=== PATIENT | male | born 1960 | race Caucasian/White ===

== ENCOUNTER 2025-07-17 19:22 | Emergency (ER) | payer MEDICARE, MEDICAID, SELFPAY ==
--- NOTE | ~2025-07-17 | XR_ITS ---
Examination: XR chest 1V portable Clinical History: SOB, bilat feet swelling Comparison: None Technique: Portable AP Findings: Heart size normal. Lungs clear. No acute bony abnormality. IMPRESSION: 1. No acute cardiopulmonary findings given portable technique. Reviewed, dictated and finalized at location [employer]
[2025-07-17 19:30] VITALS: BP 146/84; PULSE 64; RESP 22; TEMP 36.4; O2SAT 91
--- NOTE | 2025-07-17 19:36 | PC.NURSE ---
pt placed on 2L via NC with oxygen saturation at 95%.
--- NOTE | 2025-07-17 20:20 | ECG_ITS ---
Test Date: 2025-07-17 20:30:18 Measurements Intervals [place] Rate: 60 P: 25 [place]: 246 QRS: 30 QRSD: 141 T: 24 QT: 427 QTc: 427 Interpretive Statements SINUS RHYTHM WITH FIRST DEGREE AV BLOCK RIGHT BUNDLE BRANCH BLOCK PROBABLE LATERAL MYOCARDIAL INFARCTION , OF INDETERMINATE AGE [35 ms Q WAVE IN I/aVL/V5/V6] ABNORMAL ECG No previous ECG available for comparison Electronically Signed On 07-18-2025 08:41:38 [employer] by Tarun Harman M.D.
[2025-07-17 20:24] VITALS: PULSE 61; O2SAT 95
[2025-07-17 20:26] VITALS: BP 108/77; PULSE 58; RESP 29; O2SAT 94
[2025-07-17 20:31] LABS: Hematocrit 44.2 % (42.0-52.0); Hemoglobin 14.3 g/dL (14.0-18.0); Immature Granulocyte Percent A 0.2 % (0-0.5); Lymphocytes Absolute Auto 1.05 K/mm3 (0.9-3.2); Mean Corpuscular HGB Conc 32.4 g/dl (32-36); Mean Corpuscular Hemoglobin 30.8 pg (26-34); Mean Corpuscular Volume 95.1 fl (80-100); Nucleated Red Blood Cells Absolute Auto 0.000 K/mm3 (0.0-0.012); Nucleated Red Blood Cells Perc 0.0 % (0.0-0.2); Platelet Count Result 162 k/mm3 (150-375); Red Blood Count 4.65 M/mm3 (4.6-6.20); White Blood Count 5.5 K/mm3 (4.5-10.0)
--- NOTE | 2025-07-17 20:40 | ED_ITS ---
HPI - SOB/Dyspnea General Chief Complaint: Shortness of Breath/Dyspnea Stated Complaint: BLE edema Time Seen by Provider: 07/17/25 20:35 History of Present Illness HPI Narrative: This is a 64-year-old male with history of schizophrenia who, CAD, COPD, hypertension who presents [facility] ED via EMS from [facility] for shortness of breath. Per EMS, patient has apparently had worsening shortness of breath and leg swelling over the last day or so. Patient states that the leg swelling has been about this bad the last 2 weeks but does know he has been slightly more short of breath. They state that he was supposed to be started on antibiotic for his legs but he has not received that yet. Patient denies fevers, chest pain. He reports that his shortness of breath is better after getting restarted on his oxygen. Related Data Allergies Allergy/AdvReac Type Severity Reaction Status Date / Time Carbapenems Allergy Unknown Unknown Verified 07/17/25 20:52 Cephalosporins Allergy Unknown Unknown Verified 07/17/25 20:52 Penicillins Allergy Unknown Unknown Verified 07/17/25 20:52 beta-lactam antibiotics Allergy Unknown Unknown Uncoded 07/17/25 20:52 Review of Systems 2 Review of Systems: Gen.: Denies fevers or chills Eyes: Denies eye pain or visual change ENT: Denies congestion Respiratory: As per HPI CV: Denies chest pain or palpitations GI: Denies abdominal pain nausea, emesis or diarrhea denies burning, urgency, frequency or hematuria Musculoskeletal: Denies back pain or muscle pain Neuro: Denies numbness, tingling, weakness or focal weakness Skin: As per HPI Except as documented, all other systems reviewed and negative Exam 2 Narrative: APPEARANCE: No acute distress, nontoxic, resting in bed EYES: EOMI HEENT: Normocephalic, atraumatic, OMM RESPIRATORY: No respiratory distress Clear to auscultation bilaterally with no rhonchi wheezing or rales. CARDIOVASCULAR: Regular rate and rhythm without murmurs rubs or gallops. ABDOMINAL: Obese. Soft, nontender, nondistended, no rebound or guarding MUSCULOSKELETAl: Moves all extremities. 3+ pitting edema to the bilateral lower extremities up to the level of the knees. NEURO: Awake and alert. Following commands, speech normal, no focal deficits SKIN:: Warm, dry. Mild erythema to the bilateral feet up to the ankles without warmth to palpation PSYCHIATRIC: Normal affect/mood, Course Vital Signs Vital signs: Vital Signs Temperature 97.6 F 07/17/25 19:30 Pulse Rate 64 07/17/25 19:30 Respiratory Rate 22 H 07/17/25 19:30 Blood Pressure 146/84 H 07/17/25 19:30 Pulse Oximetry 91 07/17/25 19:30 Oxygen Delivery Room Air 07/17/25 19:30 Temperature 97.6 F 07/17/25 19:30 Pulse Rate 63 07/17/25 22:23 Respiratory Rate 17 07/17/25 22:23 Blood Pressure 119/71 07/17/25 22:23 Pulse Oximetry 92 07/17/25 22:23 Oxygen Delivery Nasal Cannula 07/17/25 21:23 Oxygen Flow Rate 2 07/17/25 21:23 MDM - SOB/Dyspnea MDM Narrative Medical decision making narrative: 64-year-old male Presenting for shortness of breath. On initial evaluation patient was in no acute distress afebrile, hemodynamic stable. Differentials include but are not limited to: ACS, CHF Exacerbation, COPD exacerbation, PE, PNA, PTX, bronchitis, viral syndrome Notable exam findings: On 2 L nasal cannula. 3+ pitting edema to the bilateral lower extremities up to the knees with some erythema over the feet. Minimal warmth to palpation. Notable lab findings: CBC without significant abnormalities. Bicarb elevated noted remaining CMP without significant abnormalities. BNP normal. Troponin within normal limits. Notable imaging findings: Chest x-ray showed mild pulmonary vascular congestion. Patient was given 40 mg Lasix IV. He despite the BNP, I suspect the patient did have heart failure causing his leg swelling and transient shortness of breath. He is on his baseline oxygen at this time. He may have an underlying cellulitis as well so he was started on Keflex. He was given prescriptions for Lasix and Keflex. He was advised follow-up with his PCP in the next week for evaluation. Patient was agreeable to this plan. Given strict return precautions. Medical Records Attestation: I reviewed the patient's medical records. Lab Data Attestation: I reviewed the patient's lab results. 07/17/25 20:25 07/17/25 20:26 Labs: Lab Results 07/17/25 07/17/25 Range/Units 20:25 20:26 WBC 5.5 (4.5-10.0) K/mm3 RBC 4.65 (4.6-6.20) M/mm3 Hgb 14.3 (14.0-18.0) g/dL Hct 44.2 (42.0-52.0) % MCV 95.1 (80-100) fl MCH 30.8 (26-34) pg MCHC 32.4 (32-36) g/dl RDW 13.6 (11.5-14.5) % Plt Count 162 (150-375) k/mm3 MPV 10.3 (7.4-10.4) fl Immature Gran % (Auto) 0.2 (0-0.5) % Neut % (Auto) 69.4 (45.5-73.1) % Lymph % (Auto) 19.1 (18.3-44.2) % [place] % (Auto) 10.0 H (2.6-8.5) % Eos % (Auto) 0.9 (0-4.4) % Baso % (Auto) 0.4 (0.2-1.2) % Lymph # (Auto) 1.05 (0.9-3.2) K/mm3 [place] # (Auto) 0.6 (0.1-0.6) K/mm3 Eos # (Auto) 0.1 (0-0.3) K/mm3 Baso # (Auto) 0.0 (0.0-0.1) K/mm3 Abs Immat Gran (auto) 0.01 (0.00-0.031) K/mm3 Absolute Neuts (auto) 3.8 (1.3-6.7) K/mm3 Absolute Nucleated RBC 0.000 (0.0-0.012) K/mm3 Nucleated RBC % 0.0 (0.0-0.2) % PT 12.5 (11.1-14.7) Seconds INR 0.9 APTT 29.9 (22.3-36.8) Seconds Sodium 134 L (137-145) mmol/L Potassium 4.6 (3.4-5.0) mmol/L Chloride 94 L (98-107) mmol/L Carbon Dioxide 37 H (22-30) mmol/L Anion Gap 3 L (4-12) mmol/L BUN 21 H (9-20) mg/dL Creatinine 0.88 (0.7-1.3) mg/dL Estim Creat Clear Calc 128 ml/min Estimated GFR > 60 (59 - ) Glucose 87 (65-110) mg/dL Calcium 8.8 (8.4-10.2) mg/dL Total Bilirubin 0.4 (0.2-1.3) mg/dL AST 32 (17-59) U/L ALT 27 (6-50) U/L Alkaline Phosphatase 65 (38-126) U/L Troponin I < 0.012 (0.000-0.034) ng/mL NT-Pro-B Natriuret Pep 90 (19.9-100) pg/mL Total Protein 7.2 (6.3-8.2) g/dL Albumin 4.1 (3.5-5.1) g/dL Imaging Data Attestation: I personally reviewed and interpreted this imaging study as follows: My impression: Chest x-ray: Enlarged cardiac silhouette, pulmonary vascular congestion, no pleural effusions ECG Data EKG #1: Attestation: I personally reviewed and interpreted this ECG as follows: ECG completion date: 07/17/25 ECG completion time: 20:30 Interpretation: Normal sinus rhythm with first-degree AV block, normal axis, intraventricular conduction delay, no acute ST or T-wave changes Discharge Plan Discharge Clinical Impression: Edema, peripheral Cellulitis Qualifiers: Site of cellulitis: extremity Site of cellulitis of extremity: lower extremity Laterality: unspecified laterality Qualified Code(s): L03.119 - Cellulitis of unspecified part of limb Patient Disposition: Home Condition: Stable Instructions: Antibiotic Form, Cellulitis (ED), Edema (ED) Additional Instructions: Your swelling and redness are likely due to peripheral edema and cellulitis. Your given prescriptions for doxycycline and Lasix take these as prescribed. Follow-up with your PCP the next few days for re-evaluation. Return to the ED for any new or worsening symptoms. Patient Language: Bengali Prescriptions: New furosemide [Lasix] 20 mg tablet 20 mg PO DAILY Qty: 30 0RF doxycycline hyclate 100 mg capsule 100 mg PO Q12H 7 Days Qty: 14 0RF Follow-up/Referrals: PHYSICIAN NOT ON STAFF,NONSTAFF [Primary Care Provider]
[2025-07-17 20:44] LABS: INR 0.9; Prothrombin Time 12.5 Seconds (11.1-14.7)
[2025-07-17 20:45] LABS: Partial Thromboplastin Time 29.9 Seconds (22.3-36.8)
[2025-07-17 20:49] LABS: Alanine Aminotransferase 27 U/L (6-50); Albumin Level 4.1 g/dL (3.5-5.1); Alkaline Phosphatase 65 U/L (38-126); Anion Gap 3 mmol/L (4-12); Aspartate Amino Transferase 32 U/L (17-59); Bilirubin,Total 0.4 mg/dL (0.2-1.3); Blood Urea Nitrogen 21 mg/dL (9-20); Calcium 8.8 mg/dL (8.4-10.2); Carbon Dioxide 37 mmol/L (22-30); Chloride 94 mmol/L (98-107); Estimated CRCL calculation 128 ml/min; Estimated Glomerular Filt Rate > 60; Glucose 87 mg/dL (65-110); Potassium 4.6 mmol/L (3.4-5.0); Sodium 134 mmol/L (137-145); Total Protein 7.2 g/dL (6.3-8.2)
[2025-07-17] MEDS: FUROSEMIDE INJ 40 MG/4 ML VIAL IV PUSH (20:53)
[2025-07-17 21:01] LABS: NT Pro B Type Natriuretic Pept 90 pg/mL (19.9-100); Troponin I < 0.012 ng/mL (0.000-0.034)
[2025-07-17 21:15] VITALS: BP 139/74; PULSE 56; RESP 24; O2SAT 91
[2025-07-17 21:23] VITALS: O2SAT 91
[2025-07-17] MEDS: DOXYCYCLINE HYCLATE 100 MG TABLET PO (22:13)
--- NOTE | 2025-07-17 22:22 | PC.NURSE ---
Stuart LOMELI from [facility] was called for report at [id number]
[2025-07-17 22:23] VITALS: BP 119/71; PULSE 63; RESP 17; O2SAT 92
== END 2025-07-18 02:22 ==
PROVIDERS: Emergency Provider Student in an Organized Health Care Education/Training Program
DX: R60.0 Localized edema (principal); L03.116 Cellulitis of left lower limb; L03.115 Cellulitis of right lower limb; I25.10 Atherosclerotic heart disease of native coronary artery without angina pectoris; J44.9 Chronic obstructive pulmonary disease, unspecified; F20.9 Schizophrenia, unspecified; I44.0 Atrioventricular block, first degree; I45.10 Unspecified right bundle-branch block; R94.31 Abnormal electrocardiogram [ECG] [EKG]
CPT/HCPCS: 36415; 71045; 80053; 83880; 84484; 85025; 85610; 85730; 93005; 96374; 99284; A9270; J1938